=== PATIENT | female | born 1990 ===

== ENCOUNTER 2022-11-20 08:35 | Emergency (ER) | payer SELFPAY ==
[~2022-11-20] VITALS: Ht 168 cm; Wt 74.0 kg
[2022-11-20] MEDS ORDERED: NS IV 1000 ML 1,000 ML IV STA (09:05)
--- NOTE | 2022-11-20 09:11 | ED GU-Female ---
General Chief Complaint: OB < 20 WEEKS Stated Complaint: VOMITING | 7 WEEKS PREG Nursing Triage Note: pt presents to ed via pov from home with complaints of n/v worse since yesterday. pt states she is aprox 7 weeks preg and has had some nausea and vomiting but worse since yesterday. pt reports burning sensation in stomach and states she cant keep anything down. Source: patient Exam Limitations: language barrier History of Present Illness Date Seen by Provider: Nov 20, 2022 Time Seen by Provider: 08:50 Initial Comments Patient is a 32-year-old female G2, P1 who presents to the emergency room with a chief complaint of left flank pain, nausea and vomiting for 2 days. Patient states that she has had diarrhea for about 2 weeks. She denies dysuria, urgency or frequency. No abnormal vaginal discharge. No vaginal bleeding. She has not taken anything for her nausea or pain. She has not had care as of yet it is scheduled for the beginning of December. She states she has not been able to eat or drink anything and if she does it comes right back up. She describes burning in the epigastrium and up into the chest. She states the pain comes in "waves". First day of her last menstrual cycle was 09/29/2022. EGA 7 /7wk EDC 07/06/23 Currently rates her pain at a "6". She believes she had a fever yesterday. Her son had contact with someone at school within the last 2 weeks who is COVID-positive. All other review of systems reviewed and negative except as stated. Timing/Duration: other (1-2d) Severity/Quality: moderate, aching Location: left flank Activities at Onset: none Associated Symptoms: abdominal pain, fever/chills, nausea/vomiting, other (decreased ability to eat) Allergies and Home Medications Allergies Coded Allergies: No Known Drug Allergies (Unverified , 11/20/22) Patient Home Medication List Home Medication List Reviewed: Yes Review of Systems Review of Systems Constitutional: malaise EENTM: no symptoms reported Respiratory: no symptoms reported Cardiovascular: no symptoms reported Gastrointestinal: abdominal pain, diarrhea (2 weeks), nausea, vomiting Genitourinary: no symptoms reported Musculoskeletal: no symptoms reported Skin: no symptoms reported Psychiatric/Neurological: Headache All Other Systemes Reviewed Negative Unless Noted: Yes Past Ukxqqqv-Halhdw-Deabgf Hx Patient Social History Tobacco Use?: No Substance use?: No Alcohol Use?: No Pt feels they are or have been: No Past Medical History Surgery/Hospitalization HX: pmh: preeclampsia Last Menstrual Period: Sep 29, 2022 Physical Exam Vital Signs Vital Signs - First Documented 11/20/22 08:58 Temp 36.0 Pulse 94 Resp 16 B/P (MAP) 131/87 (102) Pulse Ox 99 Capillary Refill : Less Than 3 Seconds Height, Weight, BMI Height: '" Weight: lbs. oz. kg; 26.00 BMI Method: General Appearance: WD/WN, mild distress HEENT: PERRL/EOMI Neck: normal inspection Cardiovascular: regular rate, rhythm Respiratory: lungs clear, normal breath sounds, no respiratory distress, no accessory muscle use Gastrointestinal: tenderness (diffuse tenderness, more left flank/lower quadrant) Back: no CVA tenderness Extremities: normal range of motion, normal inspection Neurologic/Psychiatric: gre instructor II-XII nml as tested, no motor/sensory deficits, alert, oriented x 3, depressed affect (tearful) Skin: normal color, warm/dry Progress/Results/Core Measures Suspected Sepsis SIRS Temperature: Pulse: 94 Respiratory Rate: 16 Laboratory Tests 11/20/22 09:27: White Blood Count 8.5 Blood Pressure 131 /87 Mean: 102 Laboratory Tests 11/20/22 09:27: Creatinine 0.60, Platelet Count 277, Total Bilirubin 0.5 Results/Orders Lab Results Laboratory Tests Test 11/20/22 09:08 11/20/22 09:27 11/20/22 09:54 Range/Units Urine Color DARK YELLOW Urine Clarity CLEAR Urine pH 6.0 5-9 Urine Specific [facility] >=1.030 1.016-1.022 Urine Protein NEGATIVE NEGATIVE Urine Glucose (UA) NEGATIVE NEGATIVE Urine Ketones NEGATIVE NEGATIVE Urine Nitrite NEGATIVE NEGATIVE Urine Bilirubin NEGATIVE NEGATIVE Urine Urobilinogen 1.0 < = 1.0 MG/DL Urine Leukocyte Esterase TRACE H NEGATIVE Urine RBC (Auto) NEGATIVE NEGATIVE Urine RBC RARE /HPF Urine WBC 2-5 /HPF Urine Squamous Epithelial Cells 5-10 /HPF Urine Crystals PRESENT H /LPF Urine Amorphous Sediment RARE [place] URATES H /LPF Urine Bacteria FEW H /HPF Urine Casts NONE /LPF Urine Mucus MODERATE H /LPF Urine Culture Indicated YES Urine Test POSITIVE NEGATIVE White Blood Count 8.5 4.3-11.0 10^3/uL Red Blood Count 4.21 3.80-5.11 10^6/uL Hemoglobin 12.4 11.5-16.0 g/dL Hematocrit 37 35-52 % Mean Corpuscular Volume 87 80-99 fL Mean Corpuscular Hemoglobin 30 25-34 pg Mean Corpuscular Hemoglobin Concent 34 32-36 g/dL Red Cell Distribution Width 13.0 10.0-14.5 % Platelet Count 277 130-400 10^3/uL Mean Platelet Volume 10.1 9.0-12.2 fL Immature Granulocyte % (Auto) 0 % Neutrophils (%) (Auto) 75 42-75 % Lymphocytes (%) (Auto) 16 12-44 % Monocytes (%) (Auto) 7 0-12 % Eosinophils (%) (Auto) 1 0-10 % Basophils (%) (Auto) 0 0-10 % Neutrophils # (Auto) 6.4 1.8-7.8 10^3/uL Lymphocytes # (Auto) 1.4 1.0-4.0 10^3/uL Monocytes # (Auto) 0.6 0.0-1.0 10^3/uL Eosinophils # (Auto) 0.1 0.0-0.3 10^3/uL Basophils # (Auto) 0.0 0.0-0.1 10^3/uL Immature Granulocyte # (Auto) 0.0 0.0-0.1 10^3/uL Sodium Level 138 135-145 MMOL/L Potassium Level 3.9 3.6-5.0 MMOL/L Chloride Level 106 98-107 MMOL/L Carbon Dioxide Level 20 L 21-32 MMOL/L Anion Gap 12 5-14 MMOL/L Blood Urea Nitrogen 6 L 7-18 MG/DL Creatinine 0.60 0.60-1.30 MG/DL Estimat Glomerular Filtration Rate 124 BUN/Creatinine Ratio 10 Glucose Level 85 70-105 MG/DL Calcium Level 9.5 8.5-10.1 MG/DL Corrected Calcium 9.3 8.5-10.1 MG/DL Total Bilirubin 0.5 0.1-1.0 MG/DL Aspartate Amino Transf (AST/SGOT) 16 5-34 U/L Alanine Aminotransferase (ALT/SGPT) 13 0-55 U/L Alkaline Phosphatase 58 40-136 U/L Total Protein 7.9 6.4-8.2 GM/DL Albumin 4.3 3.2-4.5 GM/DL Influenza Type A (RT-PCR) Not Detected Not Detecte Influenza Type B (RT-PCR) Not Detected Not Detecte SARS-CoV-2 RNA (RT-PCR) Not Detected Not Detecte My Orders Orders - DONA HOUSTON MD Ed Iv/Invasive Line Start (11/20/22 09:05) Cbc With Automated Diff (11/20/22 09:05) Comprehensive Metabolic Panel (11/20/22 09:05) Ua Culture If Indicated (11/20/22 09:05) Ns Iv 1000 Ml (Sodium Chloride 0.9%) (11/20/22 09:05) Ondansetron Injection (Zofran Injectio (11/20/22 09:15) Famotidine Injection (Pepcid Injection) (11/20/22 09:15) Covid 19 Inhouse Test (11/20/22 09:11) Influenza A And B By Pcr (11/20/22 09:11) Isolation Central Supply Req (11/20/22 09:11) Urine Culture (11/20/22 09:08) Hcg,Qualitative Urine (11/20/22 10:32) Antacid Suspension (Mylanta Suspension (11/20/22 10:45) Lidocaine 2% Viscous 15 Ml (Xylocaine Vi (11/20/22 10:45) Medications Given in ED Current Medications Medications Dose Ordered Sig/Glory Route Start Time Stop Time Status Last Admin Dose Admin Al Hydrox/Mg Hydrox/Simethicone 30 ml ONCE ONCE PO 11/20/22 10:45 11/20/22 10:46 DC 11/20/22 10:53 30 ML Famotidine 20 mg ONCE ONCE IVP 11/20/22 09:15 11/20/22 09:16 DC 11/20/22 09:29 20 MG Lidocaine HCl 5 ml ONCE ONCE PO 11/20/22 10:45 11/20/22 10:46 DC 11/20/22 10:53 5 ML Ondansetron HCl 4 mg ONCE ONCE IVP 11/20/22 09:15 11/20/22 09:16 DC 11/20/22 09:29 4 MG Vital Signs/I&O 11/20/22 08:58 Temp 36.0 Pulse 94 Resp 16 B/P (MAP) 131/87 (102) Pulse Ox 99 Capillary Refill : Less Than 3 Seconds Blood Pressure Mean: 102 Progress Note : Time: 10:39 Progress Note Patient reexamined after laboratory studies returned, still having some "burning" in the epigastrium. Maalox, viscous lidocaine ordered. Evaluation today includes physical exam, CBC, chemistry, urinalysis. Based on history and physical exam differential diagnosis includes dyspepsia/GERD, intra- abdominal pathology such as acute cholecystitis, small bowel obstruction, due to flank pain concern for UTI/Rohan. After reviewing patient's laboratory studies, CBC is normal, chemistry is normal, urine has trace bacteria, will flag for culture. I did do a bedside ultrasound and was able to identify cardiac activity that appeared adequate. Treating her with Zofran helped to improve her symptoms. 1110 Patient reevaluated again, feels much better, her discomfort and pain is completely gone. Used picc nurse services again to reassess the patient. She has no nausea, no pain. Suspect dyspepsia/GERD as the etiology of her discomfort. With the use of the picc nurse services I advised [id number]-[id number] Pepcid once a day, we will send Zofran for her nausea. Encouraged small frequent meals throughout the day to help with digestion and avoid reflux. Patient has scheduled follow-up 11 December. Return precautions provided. Patient verbalized understanding. All questions are sought and answered. Departure Impression Primary Impression: GERD (gastroesophageal reflux disease) Qualified Codes: K21.9 - Gastro-esophageal reflux disease without esophagitis Additional Impression: 7 weeks gestation of Disposition: 01 HOME, SELF-CARE Condition: Improved Departure-Patient Inst. Decision time for Depature: 11:12 Referrals: [facility] (PCP/Family) Primary Care Physician Patient Instructions: Acid Reflux (Gastroesophageal Reflux Disease) During Add. Discharge Instructions: Please try and drink plenty of fluids to stay well-hydrated. Eat small meals frequently throughout the day, every 2-3 hours. I have prescribed Zofran/ondansetron 4 mg tablets. You can take this every 6-8 hours as needed for nausea. I would also recommend [id number]-omx-lamokaa generic famotidine/Pepcid. You can get this at the pharmacy. Take 1 tablet in the morning daily. If you develop worsening pain especially with fever, persistent vomiting or any other emergent, concerning symptoms please come back to the emergency room for reevaluation. Intente beber muchos lquidos para mantenerse martínez hidratado. Coma comidas pequeas con frecuencia a lo marlon del da, cada 2-3 horas. Le he recetado comprimidos de 4 mg de Zofran/ondansetrn. Puede brandee esto cada 6-8 horas segn sea necesario para las nuseas. Tambin recomendara famotidina/Pepcid genrico de venta bruna. Puedes conseguirlo en la farmacia. [place] 1 tableta por la maana todos los pyle. Si desarrolla un empeoramiento del dolor, especialmente con fiebre, vmitos persistentes o cualquier otro sntoma preocupante emergente, regrese a la elena de emergencias para wayne reevaluacin. Scripts Ondansetron (Ondansetron Odt) 4 Mg Tab.rapdis 4 MG SL Q8H PRN for NAUSEA/VOMITING, #20 TAB Prov: DONA HOUTSON MD 11/20/22 Work/School Note: Work Release Form Date Seen in the Emergency Department: Nov 20, 2022 Return to Work: Nov 21, 2022 Copy Copies To 1: BRADEN BLACKWELL KATHRYN M MD Nov 20, 2022 09:11
[2022-11-20] MEDS ORDERED: ONDANSETRON 4 MG/2 ML (SDV) Z0FRAN IVP ONE (09:15)
[2022-11-20] MEDS ORDERED: FAMOTIDINE 20MG/2ML IV (PEPCID) IVP ONE (09:15)
[2022-11-20 09:16] LABS: BILIRUBIN,URINE NEGATIVE (NEGATIVE); CLARITY,URINE CLEAR; COLOR,URINE DARK YELLOW; GLUCOSE, URINE (UA) NEGATIVE (NEGATIVE); KETONES,URINE NEGATIVE (NEGATIVE); LEUKOCYTE ESTERASE ,URINE TRACE (NEGATIVE); NITRITE,URINE NEGATIVE (NEGATIVE); PROTEIN,URINE NEGATIVE (NEGATIVE)
[2022-11-20 09:30] LABS: BACTERIA,URINE FEW /HPF; RBC,URINE RARE /HPF
[2022-11-20 09:31] LABS: AMORPHOUS SEDIMENT,UR RARE AMOR URATES /LPF
[2022-11-20 09:37] LABS: BASOPHILS % (AUTO) 0 % (0-10); EOSINOPHILS # (AUTO) 0.1 10^3/uL (0.0-0.3); EOSINOPHILS % (AUTO) 1 % (0-10); HEMATOCRIT 37 % (35-52); HEMOGLOBIN 12.4 g/dL (11.5-16.0); LYMPHOCYTES # (AUTO) 1.4 10^3/uL (1.0-4.0); LYMPHOCYTES % (AUTO) 16 % (12-44); MEAN CORPUSCULAR HEMOGLOBIN 30 pg (25-34); MEAN CORPUSCULAR HGB CONC 34 g/dL (32-36); MEAN CORPUSCULAR VOLUME 87 fL (80-99); MEAN PLATELET VOLUME 10.1 fL (9.0-12.2); MONOCYTES # (AUTO) 0.6 10^3/uL (0.0-1.0); MONOCYTES % (AUTO) 7 % (0-12); NEUTROPHILS # (AUTO) 6.4 10^3/uL (1.8-7.8); NEUTROPHILS % (AUTO) 75 % (42-75); PLATELET COUNT 277 10^3/uL (130-400); WHITE BLOOD COUNT 8.5 10^3/uL (4.3-11.0)
[2022-11-20 09:52] LABS: ALBUMIN 4.3 GM/DL (3.2-4.5)
[2022-11-20 09:53] LABS: POTASSIUM 3.9 MMOL/L (3.6-5.0)
[2022-11-20 09:54] LABS: CALCIUM 9.5 MG/DL (8.5-10.1)
[2022-11-20 09:55] LABS: TOTAL PROTEIN 7.9 GM/DL (6.4-8.2)
[2022-11-20 09:57] LABS: BILIRUBIN,TOTAL 0.5 MG/DL (0.1-1.0)
[2022-11-20 09:58] LABS: CREATININE SERUM 0.6 MG/DL (0.60-1.30)
[2022-11-20] MEDS ORDERED: LIDOCAINE 2% VISCOUS 15 ML UDC PO ONE (10:45)
[2022-11-20] MEDS ORDERED: ANTACID SUSP 30 ML UDC (MYLANTA) PO ONE (10:45)
[2022-11-20] MEDS ORDERED: ONDA4TAB11 SL (11:16)
[2022-11-20 11:26] VITALS: BP 108/69
== END 2022-11-20 11:26 | disposition home or self-care (01) ==
LOC: ER 08:38
DX: O99.611 Diseases of the digestive system complicating pregnancy, first trimester (principal); K21.9 Gastro-esophageal reflux disease without esophagitis; Z3A.01 Less than 8 weeks gestation of pregnancy; Z20.822 Contact with and (suspected) exposure to COVID-19
CPT/HCPCS: 36415; 80053; 81000; 84703; 85025; 87077; 87088; 87636; 99283

== ENCOUNTER 2023-06-10 05:30 | Outpatient (CLI) | payer SELFPAY ==
[~2023-06-10] VITALS: Ht 117 cm; Wt 86.0 kg
[~2023-06-10 05:30] MED LIST: ONDA4TAB11 SL
== END 2023-06-10 14:29 | disposition home or self-care (01) ==
LOC: PREOP 05:30
PROVIDERS: ATTEND Obstetrics & Gynecology
DX: Z01.818 Encounter for other preprocedural examination (principal)

== ENCOUNTER 2023-06-18 05:36 | Inpatient (IN) | payer OTHER ==
[~2023-06-18] VITALS: Ht 168 cm; Wt 86.3 kg
[2023-06-18] VITALS (9 sets, daily range): BP systolic 105–141; BP diastolic 66–84
[2023-06-18] MEDS ORDERED: ceFAZolin INJECTION 2,000 MG in NS (IVPB) 50 ML 50 ML IV ONE (06:00)
[2023-06-18] MEDS ORDERED: CITRIC ACID/SODIUM CITRATE ORAL SOLN 30 ML ONE (06:23)
[2023-06-18] MEDS ORDERED: FAMOTIDINE INJ 20MG/2ML VIAL ONE (06:23)
[2023-06-18] MEDS ORDERED: METOCLOPRAMIDE INJ 10 MG/2 ML ONE (06:23)
[2023-06-18 06:24] LABS: BASOPHILS % (AUTO) 0 % (0-10); EOSINOPHILS # (AUTO) 0.2 10^3/uL (0.0-0.3); EOSINOPHILS % (AUTO) 2 % (0-10); HEMATOCRIT 31 % (35-52); HEMOGLOBIN 10.4 g/dL (11.5-16.0); LYMPHOCYTES # (AUTO) 1.5 10^3/uL (1.0-4.0); LYMPHOCYTES % (AUTO) 17 % (12-44); MEAN CORPUSCULAR HEMOGLOBIN 28 pg (25-34); MEAN CORPUSCULAR HGB CONC 33 g/dL (32-36); MEAN CORPUSCULAR VOLUME 84 fL (80-99); MEAN PLATELET VOLUME 10.6 fL (9.0-12.2); MONOCYTES # (AUTO) 0.5 10^3/uL (0.0-1.0); MONOCYTES % (AUTO) 6 % (0-12); NEUTROPHILS # (AUTO) 6.3 10^3/uL (1.8-7.8); NEUTROPHILS % (AUTO) 74 % (42-75); PLATELET COUNT 201 10^3/uL (130-400); WHITE BLOOD COUNT 8.5 10^3/uL (4.3-11.0)
[2023-06-18] MEDS ORDERED: fentaNYL INJECTION 100 MCG/2 ML VIAL ONE (06:58)
[2023-06-18] MEDS ORDERED: OXYTOCIN DRIP PRE-MIX 1,000 ML IV ONE (06:58)
[2023-06-18] MEDS ORDERED: LACTATED RINGERS 1,000 ML 1,000 ML IV PRN ×2 (07:00)
[2023-06-18] MEDS ORDERED: FAMOTIDINE INJ 20MG/2ML VIAL IV ONE (07:00)
[2023-06-18] MEDS ORDERED: CITRIC ACID/SODIUM CITRATE ORAL SOLN 30 ML PO ONE (07:00)
[2023-06-18] MEDS ORDERED: CATHETER FLUSH 10 ML SYR IV PRN (07:00)
[2023-06-18] MEDS ORDERED: METOCLOPRAMIDE INJ 10 MG/2 ML IV ONE (07:00)
[2023-06-18] MEDS ORDERED: ROPIVACAINE 5 MG/ML 30ML VIAL ONE (07:02)
--- NOTE | 2023-06-18 07:21 | History & Physical-OB ---
OB - Chief Complaint & HPI Date/Time Date of Admission: Date of Admission: Jun 18, 2023 at 05:36 Time Seen by a Provider: 07:00 Chief Complaint/History OB-Reason for Admission/Chief: Section Hx : 2 Hx Para: 1 Expected Date of Delivery: Jun 27, 2023 Gestational Age in Weeks: 38 Gestational Age in Days: 5 Indication for : desires repeat Admission Nurse Assessment Rev: Yes Other This 33yo presents @ 39wk EGA for repeat LTCS She is doing well and has no c/o She verbalized understanding of the risks, benefits and alternatives, signed consents and is ready to proceed. Allergies and Home Medications Allergies Coded Allergies: No Known Drug Allergies (Unverified , 11/20/22) Patient Home Medication List Home Medication List Reviewed: Yes Ondansetron (Ondansetron Odt) 4 Mg Tab.rapdis, 4 MG SL Q8H PRN for NAUSEA/VOMITING Prescribed by: DONA HOUSTON on 11/20/22 1116 Last Action: Reviewed OB - History Hx of Present Care: Yes Ultrasounds: Normal mid trimester US Obstetrical Complications: None Medical Complications: None Information Induced Hypertension: No Maternal Gestational Diabetes: No Hemorrhage: No Obstetrical History Hx : 2 Hx Para: 1 Hx Termination: No Hx Multiple Gestation: No Hx Ectopic : No Hx Stillbirth: No Hx Complication: No Hx Induced Hypertens: No Hx Maternal Gestational Diabet: No Hx Hemorrhage: No Delivery History Hx Section: Yes Adverse Rxn to Tranfusion: No Patient Past Medical History None Social History/Family History Alcohol Use: Denies Use Recreational Drug Use: No Smoking Cessation: Never smoker 2nd Hand Smoke Exposure: No Immunizations Influenza Vaccine Up-to-Date: Yes; Up-to-Date First/Initial COVID19 Vaccine: 2020 Second COVID19 Vaccination: 2020 Hepatitis A: Yes Hepatitis B: Yes Rubella: immune RPR/VDRL: Negative GBS Status: Negative HBsAG: Negative OB - Admission Exam Physical Exam Vitals: Vital Signs 06/18/23 05:56 Temp 36.7 Pulse 80 Resp 18 Pulse Ox 99 O2 Delivery Room Air HEENT: NCAT Heart: Rhythm Normal Lungs: Clear Abdomen: Gravid Extremities: Normal Reflexes: Normal Cervical Dilatation: None Membranes: Intact Labs Laboratory Tests Test 06/18/23 06:05 Range/Units White Blood Count 8.5 4.3-11.0 10^3/uL Red Blood Count 3.74 L 3.80-5.11 10^6/uL Hemoglobin 10.4 L 11.5-16.0 g/dL Hematocrit 31 L 35-52 % Mean Corpuscular Volume 84 80-99 fL Mean Corpuscular Hemoglobin 28 25-34 pg Mean Corpuscular Hemoglobin Concent 33 32-36 g/dL Red Cell Distribution Width 14.1 10.0-14.5 % Platelet Count 201 130-400 10^3/uL Mean Platelet Volume 10.6 9.0-12.2 fL Immature Granulocyte % (Auto) 0 % Neutrophils (%) (Auto) 74 42-75 % Lymphocytes (%) (Auto) 17 12-44 % Monocytes (%) (Auto) 6 0-12 % Eosinophils (%) (Auto) 2 0-10 % Basophils (%) (Auto) 0 0-10 % Neutrophils # (Auto) 6.3 1.8-7.8 10^3/uL Lymphocytes # (Auto) 1.5 1.0-4.0 10^3/uL Monocytes # (Auto) 0.5 0.0-1.0 10^3/uL Eosinophils # (Auto) 0.2 0.0-0.3 10^3/uL Basophils # (Auto) 0.0 0.0-0.1 10^3/uL Immature Granulocyte # (Auto) 0.0 0.0-0.1 10^3/uL OB - Assessment/Plan/Diagnosis Assessment Assessment: section Admission Dx IUP @ 39w previous LTCS Admission Status: Inpatient Order (span 2 midnights) Reason for Inpatient Admission: IUP @ 39w previous LTCS Plan for repeat Plan Plan: Section DEISY BLANCO DO Jun 18, 2023 07:21
--- NOTE | 2023-06-18 07:21 | Cesarean Section Operative ---
Procedure Procedure Note Pre-operative Diagnosis: Alysha Bright is a (33 /Para / , Gestational Age (wks)39 with History of previous section Post-operative Diagnosis: same Plus liveborn male Procedure: Repeat low transverse section Physician: DEISY BLANCO Finance Insurance Manager: Neema Morris RN Estimated blood loss: 500 mL Disposition: Counts correct x2 Stable to PACU Findings: ViableMale , Apgars 9/9,weight 8 #0oz, intact placenta, 3vc, normal appearing uterus, tubes, and ovaries. Indications:Alysha hurley (33 /Para / ,Gestational Age (wks)39 presenting for repeat low-transverse section Procedure Details: The patient was seen in pre-op and the procedure was discussed with the patient in full, including the risks, benefits, and alternatives. All questions were answered. The patient was taken to the OR suite placed under spinal anesthesia placed in the dorsolithotomy position prepped and draped usual sterile fashion. A timeout was performed. Anesthesia was confirmed using an Allis clamp. An incision was made through the previous Pfannenstiel incision site and carried down to level the fascia the fascia was nicked and incised bilaterally reflected off the rectus abdominis muscle both superiorly and inferiorly. The rectus abdominis muscle was in the midline and entered into the peritoneum sharply and extended bilaterally. A large Renny self-retaining retractor was then inserted and a low transverse uterine incision was made and extended bilaterally. The head was delivered atraumatically using the aids of Olvera forceps. The mouth and nose were bulb suctioned. The posterior shoulder delivered followed by the anterior shoulder followed by the rest the . After 60 seconds the cord was clamped and cut and the was taken to the nurses care underneath the warmer. Cord bloods were obtained. The placenta was spontane ously removed and the uterus was exteriorized and cleared of all clot and debris. Uterine incision was reapproximated using 0 Vicryl in a running interlocking fashion and imbricated using 0 Vicryl in a running fashion for excellent hemostasis. The incision site was inspected and was noted to be hemostatic. The uterus tubes and ovaries were also inspected and were also noted to be hemostatic. The abdominal cavity was cleared of all clot and debris and uterus was placed back inside the abdominal cavity without any difficulty. The incision was inspected once more there was noted to be a little bit of bleeding in the midline which was made hemostatic using a [id number] stitch of 0 Vicryl. The Renny retractor was then removed and the peritoneum was re approximated using 0 Vicryl in running fashion and the rectus abdominis muscle was reapproximate using 0 Vicryl and 4 interrupted stitches. The fascia was then reapproximate using 1-0 Vicryl in running fashion. The subcutaneous tissue was undermined and then closed with 2-0 Vicryl and the skin was reapproximated using 3-0 Monocryl and then sealed with Dermabond. The estimated blood loss was approximately 500 cc fluids were 1000 cc and urine output was 100 cc. All my counts were correct x2 and the patient was taken to recovery room in stable condition. Mother and tolerated the procedure well. Vitals - Labs Vital Signs - I&O Vital Signs Date Time Temp Pulse Resp B/P (MAP) Pulse Ox O2 Delivery O2 Flow Rate FiO2 06/18/23 05:56 36.7 80 18 99 Room Air Labs Laboratory Tests 06/18/23 06:05: White Blood Count 8.5, Red Blood Count 3.74L, Hemoglobin 10.4L, Hematocrit 31L, Mean Corpuscular Volume 84, Mean Corpuscular Hemoglobin 28, Mean Corpuscular Hemoglobin Concent 33, Red Cell Distribution Width 14.1, Platelet Count 201, Mean Platelet Volume 10.6, Immature Granulocyte % (Auto) 0, Neutrophils (%) (A uto) 74, Lymphocytes (%) (Auto) 17, Monocytes (%) (Auto) 6, Eosinophils (%) (Auto) 2, Basophils (%) (Auto) 0, Neutrophils # (Auto) 6.3, Lymphocytes # (Auto) 1.5, Monocytes # (Auto) 0.5, Eosinophils # (Auto) 0.2, Basophils # (Auto) 0.0, Immature Granulocyte # (Auto) 0.0 DEISY BLANCO DO Jun 18, 2023 07:21
[2023-06-18] MEDS ORDERED: ONDANSETRON INJECTION 4 MG/2 ML (SDV) ONE (07:47)
[2023-06-18] MEDS ORDERED: PHENYLEPHRINE 100 MCG/ML 10 ML (ANESTHESIA) SYR ONE (08:12)
[2023-06-18] MEDS ORDERED: LIDOCAINE PF 2% 5 ML VIAL ONE (08:26)
[2023-06-18] MEDS ORDERED: OXYTOCIN DRIP PRE-MIX 500 ML IV SCH (08:45)
[2023-06-18] MEDS ORDERED: ONDANSETRON INJECTION 4 MG/2 ML (SDV) IVP PRN (08:45)
[2023-06-18] MEDS ORDERED: MEASLES, MUMPS, RUBELLA VACCINE (MMR) SC SCH (08:45)
[2023-06-18] MEDS ORDERED: NALOXONE 0.4 MG/ML 1 ML VIAL IV PRN (08:45)
[2023-06-18] MEDS ORDERED: Tetanus/Diphtheria/Pertussis (Acell) ADULT Vaccine 0.5 ML IM SCH (08:45)
[2023-06-18] MEDS: KETOROLAC INJ 15 MG/ML VIAL IV SCH ×2 (12:19→16:49)
[2023-06-18] MEDS: DOCUSATE SODIUM 100 MG CAPSULE PO SCH ×2 (12:19→21:26)
[2023-06-18] MEDS: HYDROcodone/ACETAMINOPHEN 5 MG/325 MG TABLET PO PRN (21:26)
[2023-06-19 00:11] VITALS: BP 111/68
[2023-06-19] MEDS: KETOROLAC INJ 15 MG/ML VIAL IV SCH ×2 (00:11→05:58)
[2023-06-19] MEDS: CATHETER FLUSH 10 ML SYR IV SCH ×3 (00:11→05:58)
[2023-06-19 03:45] VITALS: BP 110/66
[2023-06-19] MEDS ORDERED: MILK OF MAGNESIA 400 MG/5 ML 30 ML UDC PO PRN (05:00)
[2023-06-19 06:16] LABS: BASOPHILS % (AUTO) 0 % (0-10); EOSINOPHILS # (AUTO) 0.1 10^3/uL (0.0-0.3); EOSINOPHILS % (AUTO) 1 % (0-10); HEMATOCRIT 29 % (35-52); HEMOGLOBIN 9.2 g/dL (11.5-16.0); LYMPHOCYTES # (AUTO) 1.3 10^3/uL (1.0-4.0); LYMPHOCYTES % (AUTO) 14 % (12-44); MEAN CORPUSCULAR HEMOGLOBIN 28 pg (25-34); MEAN CORPUSCULAR HGB CONC 32 g/dL (32-36); MEAN CORPUSCULAR VOLUME 86 fL (80-99); MEAN PLATELET VOLUME 10.6 fL (9.0-12.2); MONOCYTES # (AUTO) 0.6 10^3/uL (0.0-1.0); MONOCYTES % (AUTO) 7 % (0-12); NEUTROPHILS # (AUTO) 7.1 10^3/uL (1.8-7.8); NEUTROPHILS % (AUTO) 77 % (42-75); PLATELET COUNT 167 10^3/uL (130-400); WHITE BLOOD COUNT 9.1 10^3/uL (4.3-11.0)
[2023-06-19 08:00] VITALS: BP 125/68
[2023-06-19] MEDS: DOCUSATE SODIUM 100 MG CAPSULE PO SCH ×2 (08:05→21:21)
[2023-06-19] MEDS: HYDROcodone/ACETAMINOPHEN 5 MG/325 MG TABLET PO PRN (08:08)
--- NOTE | 2023-06-19 08:36 | Postpartum Progress Note ---
Post Op Post-operative Day #1 Subjective: Patient is without complaints. Ambulating, voiding after goldberg removed. Tolerating a regular diet without nausea or vomiting. Normal lochia. Pain is well controlled with oral pain medications. Passing flatus. Breast-feeding going well. Objective: Vital signs stable afebrile Physical Exam: General - Alert and oriented, no apparent distress Abdomen - Soft, appropriately tender to palpation, non-distended, fundus firm at umbilicus Incision - clean, dry and intact; no erythema or induration, no drainage Extremities - no edema, negative Danelle's bilaterally Assessment: [] post-operative day # 1 status post Repeat LTCS Recovering well, hemodynamically stable anemia hemoglobin 9.2 Plan: Routine post-operative care. Encourage breast feeding. Encourage ambulation. VTE prophylaxis: SCDs. Ferrous sulfate supplementation. Plan for discharge [] Vitals - Labs Vital Signs - I&O Vital Signs Date Time Temp Pulse Resp B/P (MAP) Pulse Ox O2 Delivery O2 Flow Rate FiO2 06/19/23 03:45 36.1 71 18 110/66 (81) 98 Room Air 06/19/23 00:11 36.5 75 18 111/68 (82) 98 Room Air 06/18/23 21:00 36.2 79 18 110/70 (83) 99 Room Air 06/18/23 16:00 36.7 77 18 125/69 (87) 98 Room Air 06/18/23 12:00 36.6 75 17 118/69 (85) 98 Room Air 06/18/23 11:04 36.7 78 18 141/80 (100) 98 Room Air 06/18/23 09:50 Room Air 06/18/23 09:39 Room Air 06/18/23 09:39 36.1 14 122/81 (95) 96 Room Air 06/18/23 09:24 Room Air 06/18/23 09:24 36.0 16 126/84 (98) 98 Room Air 06/18/23 09:09 Room Air 06/18/23 09:09 36.5 14 105/66 (79) 99 Room Air 06/18/23 08:56 Room Air 06/18/23 08:50 36.0 18 108/66 (80) 98 Room Air I & O 06/19/23 07:00 Intake Total 1700 ml Output Total 1400 ml Balance 300 ml Labs Laboratory Tests 9/7/23 06:03: White Blood Count 9.1, Red Blood Count 3.33L, Hemoglobin 9.2L, Hematocrit 29L, Mean Corpuscular Volume 86, Mean Corpuscular Hemoglobin 28, Mean Corpuscular Hemoglobin Concent 32, Red Cell Distribution Width 14.0, Platelet Count 167, Mean Platelet Volume 10.6, Immature Granulocyte % (Auto) 0, Neutrophils (%) (Auto) 77H, Lymphocytes (%) (Auto) 14, Monocytes (%) (Auto) 7, Eosinophils (%) (Auto) 1, Basophils (%) (Auto) 0, Neutrophils # (Auto) 7.1, Lymphocytes # (Auto) 1.3, Monocytes # (Auto) 0.6, Eosinophils # (Auto) 0.1, Basophils # (Auto) 0.0, Immature Granulocyte # (Auto) 0.0 DEISY BLANCO DO Jun 19, 2023 08:36
[2023-06-19] MEDS ORDERED: PREN-51 PO (08:39)
[2023-06-19] MEDS ORDERED: ACHD5005 PO (08:39)
[2023-06-19] MEDS ORDERED: IBUP-1780 PO (08:39)
[2023-06-19 12:00] VITALS: BP 106/65
[2023-06-19] MEDS: FERROUS SULFATE 325 MG (IRON) TABLET PO SCH (12:11)
[2023-06-19] MEDS: IBUPROFEN 800 MG TABLET PO SCH ×2 (12:11→16:39)
--- NOTE | 2023-06-19 14:25 | Anesthesia-Regional Post-Op ---
Regional Patient Condition Mental Status: Alert, Oriented x3 Circulation: Same as Pre-Op Headache: Absent Sensation: Full Recovery Motor Block: Absent Post Op Complications Complications None Follow Up Care/Instructions Patient Instructions None needed. Anesthesia/Patient Condition Patient is doing well, no complaints, stable vital signs, no apparent adverse anesthesia problems. No complications reported per nursing. PASTORA DAVEY DO Jun 19, 2023 14:25
[2023-06-19 16:00] VITALS: BP 124/87
[2023-06-19 21:21] VITALS: BP 105/60
[2023-06-20] MEDS: IBUPROFEN 800 MG TABLET PO SCH ×2 (00:03→10:19)
[2023-06-20 04:06] VITALS: BP 103/68
[2023-06-20] MEDS: HYDROcodone/ACETAMINOPHEN 5 MG/325 MG TABLET PO PRN (04:09)
--- NOTE | 2023-06-20 07:11 | Postpartum Progress Note ---
Post Op Post-operative Day #2 Subjective: Patient is without complaints. Ambulating, voiding after goldberg removed. Tolerating a regular diet without nausea or vomiting. Normal lochia. Pain is well controlled with oral pain medications. Passing flatus. breast-feeding going well Objective: VSSAF Physical Exam: General - Alert and oriented, no apparent distress Breast symmetrical no erythema edema or engorgement Abdomen - Soft, appropriately tender to palpation, non-distended, fundus firm at umbilicus Incision - clean, dry and intact; no erythema or induration, no drainage Lochia minimal Extremities - no edema, negative Danelle's bilaterally Assessment: [] post-operative day # 2, status post Spontaneous vaginal delivery Recovering well, hemodynamically stable anemia Plan: Routine post-operative care. Encourage breast feeding. Encourage ambulation. VTE prophylaxis: SCDs. Ferrous sulfate supplementation. Plan for discharge [] Vitals - Labs Vital Signs - I&O Vital Signs Date Time Temp Pulse Resp B/P (MAP) Pulse Ox O2 Delivery O2 Flow Rate FiO2 06/20/23 04:06 36.0 79 18 103/68 (80) 98 Room Air 06/19/23 21:21 36.4 69 18 105/60 (75) 97 Room Air 06/19/23 16:39 36.5 06/19/23 16:00 36.5 65 18 124/87 (99) 97 Room Air 06/19/23 12:11 36.2 06/19/23 12:00 36.2 77 18 106/65 (79) 97 Room Air 06/19/23 08:00 36.2 75 18 125/68 (87) 98 Room Air I & O 06/20/23 07:00 Intake Total 2400 ml Balance 2400 ml DEISY BLANCO DO Jun 20, 2023 07:11
--- NOTE | 2023-06-20 07:13 | Discharge Summary ---
Discharge Summary Hospital Course Hospital Course Date of Admission: Jun 18, 2023 at 05:36 Admission Diagnosis : Family Physician/Provider: Yarnell/[facility] Date of Discharge: 06/18/23 Discharge Diagnosis:Status post repeat low-transverse section, anemia Hospital Course: Patient was admitted for repeat low-transverse section delivered a liveborn male . Her /postoperative course was uneventful. Her pain was well controlled. Her hemoglobin was 9.2 which is considered anemic and so iron sulfate was initiated. The patient was discharged to home on postop day #2 with instructions to follow-up in 1 week. Labs and Pending Lab Test: Laboratory Tests 06/18/23 06:05: White Blood Count 8.5, Red Blood Count 3.74L, Hemoglobin 10.4L, Hematocrit 31L, Mean Corpuscular Volume 84, Mean Corpuscular Hemoglobin 28, Mean Corpuscular Hemoglobin Concent 33, Red Cell Distribution Width 14.1, Platelet Count 201, Mean Platelet Volume 10.6, Immature Granulocyte % (Auto) 0, Neutrophils (%) (Auto) 74, Lymphocytes (%) (Auto) 17, Monocytes (%) (Auto) 6, Eosinophils (%) (Auto) 2, Basophils (%) (Auto) 0, Neutrophils # (Auto) 6.3, Lymphocytes # (Auto) 1.5, Monocytes # (Auto) 0.5, Eosinophils # (Auto) 0.2, Basophils # (Auto) 0.0, Immature Granulocyte # (Auto) 0.0 Home Meds Active Ondansetron Odt (Ondansetron) 4 Mg Tab.rapdis 4 Mg SL Q8H PRN Discharge Diet: Regular Diet Symptoms to Report to : Pain Increased, Fever Over 101 Degrees F, Pain/Pressure in Chest, Vaginal Bleeding Increase, Lightheadedness, Vaginal Discharge Foul For Any Problems or Questions: Contact Your Physician Infection Signs and Symptoms: Increased Redness, Foul Odor of Wound, Increased Drainage, Skin Itchy or Has a Rash, Increased Swelling, Temperature Above 101 F Operative Area Clean and Dry: Keep Incision Clean/Dry Stitches/Maame/Dermabond: Dermabond Discharge Physical Examination Allergies: Coded Allergies: No Known Drug Allergies (Unverified , 11/20/22) Vitals & I&Os Vital Signs Date Time Temp Pulse Resp B/P (MAP) Pulse Ox O2 Delivery O2 Flow Rate FiO2 06/18/23 05:56 36.7 80 18 99 Room Air Discharge Summary Date of Admission Jun 18, 2023 at 05:36 Date of Discharge Supervisory-Addendum Brief Verification & Attestation Participated in pt care: history, MDM, physical Personally performed: exam, history, MDM, supervision of care Care discussed with: Medical Student Procedures: n/a Results interpretation: Verified all documentation I saw and examined this patient myself DEISY BLANCO DO Jun 18, 2023 07:21
[2023-06-20] MEDS ORDERED: FAMO-119 PO (07:14)
[2023-06-20] MEDS ORDERED: ACHD5005 PO (07:15)
[2023-06-20] MEDS: FERROUS SULFATE 325 MG (IRON) TABLET PO SCH (10:18)
[2023-06-20] MEDS: DOCUSATE SODIUM 100 MG CAPSULE PO SCH (10:18)
[2023-06-20 10:25] VITALS: BP 125/74
== END 2023-06-20 13:15 | disposition home or self-care (01) | DRG 788 ==
LOC: LDRP 05:36
PROVIDERS: ADMIT Obstetrics & Gynecology; ATTEND Obstetrics & Gynecology
PROC: 10D00Z1 Extraction of Products of Conception, Low, Open Approach (ICD-10-PCS; principal; 2023-06-18 07:30)
DX: O34.211 Maternal care for low transverse scar from previous cesarean delivery (principal); O90.81 Anemia of the puerperium; Z3A.38 38 weeks gestation of pregnancy; Z37.0 Single live birth
CPT/HCPCS: 36415; 85025; 86850; 86900; 86901; 94664